=== PATIENT | female | born 1955 | race Caucasian/White ===

== ENCOUNTER 2017-02-25 10:00 | Emergency (ER) | payer BC, MEDICAID ==
[2017-02-25 10:36] VITALS: BP 124/77
--- NOTE | 2017-02-25 11:00 | RAD ---
INDICATION: Distal LEFT forearm pain and swelling post fall 3 days ago. COMPARISON: June 18, 2014 radiographs. TECHNIQUE: AP, lateral, and oblique views LEFT wrist. REPORT: Bone density appears decreased corresponding with osteopenia on September 12, 2016 DEXA scan. Mildly impacted fracture at the distal metaphysis of the radius with disproportionate dorsal impaction resulting in loss of the normal volar tilt of the distal radioarticular surface. Probable mild associated cortical impaction fracture of the distal metaphysis of the ulna. 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 Soft tissue swelling about the wrist. IMPRESSION: Distal metaphyseal fractures of the radius and ulna.
--- NOTE | 2017-02-25 11:44 | UC ---
Hand/Wrist HPI - HPI Summary HPI Summary: pt presents with c/o left wrist pain, bruising, and mild swelling. Pt reports that on 02/23/17 she woke at night and "hit" left wrist on the wall while walking to bathroom at night. Pt now c/o left wrist pain, swelling and bruising to anterior forearm. Pt has history of osteopenia, gastric bypass and knee replacement - History Of Current Complaint Chief Complaint: UCUpperExtremity Stated Complaint: LEFT WRIST INJURY Time Seen by Provider: 02/25/17 11:10 Hx Obtained From: Patient ?: No Mechanism Of Injury: hit wall with left wrist while walking at night and tripping Onset/Duration: Sudden Onset, Lasting Days Severity Initially: Mild Severity Currently: Mild Character Of Pain: Dull, Aching, Stiffness Aggravating Factor(s): Movement Alleviating: Rest, Ice Associated Signs And Symptoms: Positive: Swelling, Bruising Related History: Dominant Hand Left - Risk Factors Compartment Syndrome Risk Factors: Pain - Allergies/Home Medications Allergies/Adverse Reactions: Allergies Allergy/AdvReac Type Severity Reaction Status Date / Time Penicillins Allergy Intermediate Hives Verified 02/25/17 10:28 PMH/Surg Hx/FS Hx/Imm Hx Previously Healthy: Yes - see PMH Cardiovascular History Of: Denies: Cardiac Disorders Respiratory History Of: Denies: COPD Psychological History Of: Denies: Anxiety - Surgical History Surgical History: Yes Surgery Procedure, Year, and Place: 2009 RIGHT MASTECTOMY, [facility]. 1976 & 1989 2 CSECTIONS, [facility]. 2014 [facility]. 2015 BILATERAL CATARACT EXTRACTION WITH IOL IMPLANT, [place], [place]. Bunion surgery- - Family History Known Family History: Positive: Other - osteopororis - Social History Occupation: Employed Full-time Lives: Alone Alcohol Use: Daily Alcohol Amount: wine Substance Use Type: None Smoking Status (MU): Former Smoker Type: Cigarettes Amount Used/How Often: LESS THAN A PPD, FOR 25-30 YEARS ON AND OFF Length of Time of Smoking/Using Tobacco: 25-30 YEARS OFF AND ON Have You Smoked in the Last Year: No When Did the Patient Quit Smoking/Using Tobacco: 2005 - Immunization History Most Recent Influenza Vaccination: June 2016 Most Recent Tetanus Shot: 03/10/14 Most Recent Pneumonia Vaccination: Review of Systems Constitutional: Negative Skin: Bruising - left forearm Eyes: Negative ENT: Negative Respiratory: Negative Cardiovascular: Negative Gastrointestinal: Negative Genitourinary: Negative Motor: Decreased ROM, Weakness - left wrist, Neurovascular: Negative Musculoskeletal: Arthralgia, Decreased ROM, Edema - left wrist, Myalgia - left wrist, forearm Neurological: Negative Psychological: Negative All Other Systems Reviewed And Are Negative: Yes Physical Exam Triage Information Reviewed: Yes Appearance: Well-Appearing Vital Signs: Initial Vital Signs Temp 98 F 02/25/17 10:26 Pulse 84 02/25/17 10:26 Resp 16 02/25/17 10:26 BP 124/77 02/25/17 10:26 Pulse Ox 99 02/25/17 10:26 Eye Exam: Normal Neck exam: Normal Respiratory Exam: Normal Musculoskeletal Exam: Other Musculoskeletal: Positive: Strength Limited @ - left wrist, Edema @ - left wrist and forearm, brusing anterior left forearm to mid shaft Neurological Exam: Normal Psychological Exam: Normal Skin Exam: Other - bruising, left wrist Hand/Wrist Course/Dx - Differential Dx/Diagnosis Differential Diagnosis/HQI/PQRI: Contusion, Fracture, Sprain, Strain Provider Diagnoses: fracture: Left Distal metaphyseal fractures of the radius and ulna. Discharge - Discharge Plan Condition: Stable Disposition: HOME Patient Education Materials: Wrist Fracture in Adults (ED) Referrals: Elvira Gomez MD [Medical Doctor] - Gila Austin MD [Primary Care Provider] - If Needed Additional Instructions: Please follow with up with Dr. Gomez as soon as possible.
== END 2017-02-25 11:51 | disposition home or self-care (01) ==
LOC: UCCORT 10:00
DX: S52.502A Unspecified fracture of the lower end of left radius, initial encounter for closed fracture (principal); S52.602A Unspecified fracture of lower end of left ulna, initial encounter for closed fracture; W22.09XA Striking against other stationary object, initial encounter; Y93.89 Activity, other specified; Y92.009 Unspecified place in unspecified non-institutional (private) residence as the place of occurrence of the external cause; Z88.0 Allergy status to penicillin; Z96.651 Presence of right artificial knee joint; Z98.42 Cataract extraction status, left eye; Z98.41 Cataract extraction status, right eye; Z96.1 Presence of intraocular lens; Z87.891 Personal history of nicotine dependence
CPT/HCPCS: 99213; G0463

== ENCOUNTER 2018-02-15 17:20 | Emergency (ER) | payer BC, MEDICAID ==
[2018-02-15 18:48] VITALS: BP 128/80
--- NOTE | 2018-02-15 19:52 | RAD ---
INDICATION: Right shoulder injury. TECHNIQUE: 4 views of the right shoulder were obtained. FINDINGS: The bones are osteopenic and in normal alignment. There is an oblique radiolucent line which projects across the distal clavicle suggestive of a nondisplaced fracture. There is moderate osteoarthritic change in the glenohumeral joint. IMPRESSION: NONDISPLACED FRACTURE OF THE DISTAL CLAVICLE.
--- NOTE | 2018-02-15 20:34 | UC ---
Shoulder Pain HPI - HPI Summary HPI Summary: 5 days ago patient was changing her storm and screen windows. one of the window slipped spell hit her on the right shoulder. she has had pain and swelling bruising in the right shoulder - History of Current Complaint Chief Complaint: UCUpperExtremity Stated Complaint: RIGHT SHOULDER INJURY Time Seen by Provider: 02/15/18 19:28 Hx Obtained From: Patient ?: No Onset/Duration: Sudden Onset, Lasting Days - 5, Still Present Timing: Constant Severity Initially: Mild Severity Currently: Mild Location Of Pain: Is Discrete @ - Right shoulder Pain Intensity: 0 Character: Aching Aggravating Factor(s): Movement Alleviating Factor(s): OTC Meds Associated Signs And Symptoms: Positive: Swelling, Bruising Related History: Dominant Hand Right - Allergies/Home Medications Allergies/Adverse Reactions: Allergies Allergy/AdvReac Type Severity Reaction Status Date / Time Penicillins Allergy Hives Verified 02/15/18 18:33 Home Medications: Home Medications Abatacept* [Orencia*] 125 mg WEEKLY 02/15/18 [History Confirmed 02/15/18] PMH/Surg Hx/FS Hx/Imm Hx Previously Healthy: Yes - Surgical History Surgical History: Yes Surgery Procedure, Year, and Place: 2008 RIGHT MASTECTOMY, [facility]. 1976 & 1989 2 CSECTIONS, [facility]. 2014 TOTAL RIGHT KNEE REPLACEMENT, [facility]. 2015 BILATERAL CATARACT EXTRACTION WITH IOL IMPLANT, [place], [place]. Bunion surgery- - Family History Known Family History: Positive: None, Other - osteopororis - Social History Occupation: Retired Lives: With Family Alcohol Use: Daily Alcohol Amount: wine Substance Use Type: None Smoking Status (MU): Former Smoker Type: Cigarettes Amount Used/How Often: LESS THAN A PPD, FOR 25-30 YEARS ON AND OFF Length of Time of Smoking/Using Tobacco: 25-30 YEARS OFF AND ON Have You Smoked in the Last Year: No When Did the Patient Quit Smoking/Using Tobacco: 2005 - Immunization History Most Recent Influenza Vaccination: June 2016 Most Recent Tetanus Shot: 03/10/14 Most Recent Pneumonia Vaccination: ~2012 Review of Systems Constitutional: Negative Skin: Negative Eyes: Negative ENT: Negative Respiratory: Negative Cardiovascular: Negative Gastrointestinal: Negative Genitourinary: Negative Motor: Negative Neurovascular: Negative Musculoskeletal: Arthralgia - Pain in her right clavicle Neurological: Negative Psychological: Negative Is Patient Immunocompromised?: No All Other Systems Reviewed And Are Negative: Yes Physical Exam Triage Information Reviewed: Yes Appearance: Well-Appearing, No Pain Distress, Well-Nourished Vital Signs: Initial Vital Signs Temp 98.2 F 02/15/18 18:35 Pulse 72 02/15/18 18:35 Resp 16 02/15/18 18:35 BP 128/80 02/15/18 18:35 Pulse Ox 99 02/15/18 18:35 Vital Signs Reviewed: Yes Eye Exam: Normal Eyes: Positive: Conjunctiva Clear ENT Exam: Normal ENT: Positive: Normal ENT inspection, Hearing grossly normal, TMs normal, Uvula midline. Negative: Nasal congestion, Tonsillar swelling, Tonsillar exudate, Trismus, Muffled voice, Hoarse voice, Dental tenderness Dental Exam: Normal Neck exam: Normal Neck: Positive: Supple, Nontender Respiratory Exam: Normal Respiratory: Positive: Chest non-tender, No respiratory distress, No accessory muscle use Cardiovascular Exam: Normal Cardiovascular: Positive: RRR, Pulses Normal, Brisk Capillary Refill Musculoskeletal Exam: Other - Right shoulder Musculoskeletal: Positive: Strength Limited @, ROM Limited @, Edema @ Neurological Exam: Normal Neurological: Positive: Alert, Muscle Tone Normal Psychological Exam: Normal Skin Exam: Other Skin: Positive: Other - Bruising on the right side of her cheek Diagnostics - Radiology No standard instances Xray Interpretation: Positive (See Comments) - Fractured right Clavicle Radiology Interpretation Completed By: ED Physician, Radiologist Shoulder Course/Dx - Course Assessment/Plan: Rest, ice, pain, control, sling. follow with orthopedic doctor - Differential Dx/Diagnosis Provider Diagnoses: Fractured right clavicle, contusion right cheek Discharge - Sign-Out/Discharge Documenting (check all that apply): Discharge - Discharge Plan Condition: Stable Disposition: HOME Patient Education Materials: Ibuprofen (By mouth), Clavicle Fracture (ED), How to Use a Sling (ED) Referrals: Tae Wu MD [Medical Doctor] - 3 Days - Billing Disposition and Condition Condition: STABLE Disposition: HOME
== END 2018-02-15 20:37 | disposition home or self-care (01) ==
LOC: UCCORT 17:20
DX: S42.034A Nondisplaced fracture of lateral end of right clavicle, initial encounter for closed fracture (principal); W20.8XXA Other cause of strike by thrown, projected or falling object, initial encounter; Y92.9 Unspecified place or not applicable; M19.011 Primary osteoarthritis, right shoulder; Z87.891 Personal history of nicotine dependence; Z88.0 Allergy status to penicillin
CPT/HCPCS: 99212; G0463